=== PATIENT | male | born 1955 | race Caucasian/White ===

== ENCOUNTER 2022-03-01 12:58 | Outpatient (RCR) | payer MEDICARE, SELFPAY ==
--- NOTE | 2022-03-06 11:05 | HP.PTEVAL_ITS ---
Patient's Visit Information MARITZA RIVERA is a 66 year old M referred to Physical Therapy by Dr. Jesus Collins MD with a diagnosis of TMD. Date of Evaluation: 03/01/22 Physical Therapist: Victor Manuel Durbin DPT - Visit Plan Frequency: 2x /Week Duration: 4 Weeks Plan: Start with racobado exercises. Add in US to R side of TMJ. Add in TMJ mobility and massater/pterygoid massage. - Subjective Pt. is here today for his initial evaluation with diagnosis of R TMD. Pt. reports having increased pain with his R jaw since [place]. He reports increased pain with opening and with closing his mouth, as well as chewing. He has been having on and off pain since. Pt. does reports some mild relief over the past few days, but is still having trouble opening his mouth. He reports being tender to the touch, but has had some relief with icing this R mandible. Pt. has had a few episodes of TMD over the past few years. He is hopeful to get back to all eating and chewing without increase in symptoms. Pt. denies popping in his jaw, but does report some pain at radiates into maxillary region of R side. - Pain R TMJ Pain Intensity (Out of 10): 4 Pain Intensity Range: 2, 7 - Objective POSTURE: Pt. has fairly decent posture in stance. Slight FH posture. Pt. with mouth closed has normal jaw posture. Slight R deviation with opening. He is able to open ~23mm Mild cervical protrusion noted. PALPATION: Pt. has tenderness at R TMJ and slightly into maxillary region on the right side. No L sided pain. NEURO: normal cranial testing. Normal sensation throughout face. ROM: CERVICAL SPINE: flexion min loss NE, ext min loss NE, SB min loss NE bilat. rotation min loss bilat NE. jaw openin cm with opening. Pain and stiffness limiting. Pain at R TMJ. MMT: Pt. has normal jaw, cervical spine and B shoulder strength. - Goals Goal 1:: LTG: Pt. to be I with HEP. Goal Time Frame: 2-4 Weeks Goal 2:: STG: pt. to eat without increase in R side TMJ pain. Goal Time Frame: 2 Weeks Goal 3:: STG: Pt. to have increased ROM with jaw opening to at least 50mm. Goal Time Frame: 2-4 Weeks Goal 4:: LTG: Pt. to sleep without increase in symptoms. Goal Time Frame: 2-4 Weeks - Rehabilitation Potential Physical Therapy Diagnosis: Pt. has signs and symptoms consistent with TMD on the R side. Pt. has marked hypomobility with opening his jaw and marked pain with chewing. He has R lateral deviation with opening his mouth most likely due to disc derangement of R TMJ. Due to his pain he also has tightness in his R masseter as well. I would like to work in PT with him with focus on reducing muscle tension and and allowing for increased ability to eat and drink with less issues. Rehabilitation Potential: Excellent - Anticipated Interventions Patient/Client Instruction: Educate patient on: Condition, Plan of Care, Risk Factors, Benefits of Fitness Program For the Purpose of:: To foster healthy habits, To improve decision making, To facilitate caregiver knowledge, To improve self management, To prevent re- injury, To improve ability to perform tasks related to life management Therapeutic Exercise to Include: Strength training, Body mechanics, Postural training, Flexibilty training, Passive ROM, Active ROM, Debbie Exercises, Scapular Strength/Stabilization For the Purpose of:: To decrease pain, To increase ROM, To improve nutrient delivery to tissue, To increase oxygenation perfusion, To improve muscle performance and motor function Manual Therapy Techniques to Include: Mobilization, Functional dry needling, Soft tissue mobilization For the Purpose of:: To decrease pain, To decrease swelling/inflammation, To increase ROM, To improve nutrient delivery to tissue Ultrasound (thermal/non thermal): Yes For the Purpose of:: To decrease pain, To increase ROM, To improve nutrient delivery to tissue, To increase oxygenation perfusion Thank you for the opportunity to evaluate your patient. For Medicare and Medicare HMO plans, please review the plan of care and approve it. It will need to be FAXED BACK to us at [phone] for Medicare purposes. For Medicare only, by signing this I certify the plan of care. Please let me know if there are questions or concerns regarding this plan of care. Physician Signatu re: Date:
== END 2022-03-01 19:00 | disposition home or self-care (01) ==
LOC: PT 12:58
PROVIDERS: PCP Family Medicine; Referring Provider Family Medicine; Visit Provider Family Medicine
DX: M26.609 Unspecified temporomandibular joint disorder, unspecified side (principal)
CPT/HCPCS: 97035; 97110; 97161

== ENCOUNTER 2022-11-15 13:30 | Outpatient (RCR) | payer MEDICARE, SELFPAY ==
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
--- NOTE | 2022-11-15 14:25 | HP.PTDCSUM ---
Discharge Summary D/C summary: It has been my pleasure to treat MARITZA RIVERA referred by Dr. Jesus Collins MD, with the diagnosis of TMJ dysfunction for a total of 5 visit(s). Discharge Date: 11/15/22 Please see the following information for a summary of their discharge status. Subjective Subjective: Alot better than at first. I can smile and eat and talk. Fairly consistently , pain is up and down and mostly during the night waking up at 2 am with minor pain r cheek. Can manage with brushing technique. Wakes up OK. Eating is better, avoiding thicker foods. 90% better. To doctor in January. Doing HEP. Pain R TMJ: Pain Intensity (Out of 10): 0 Overall Improvement % Improvement: 90 Objective Objective/Function: L deviation 15 adn R 13 degrees.opening 40 mm today. good opening today and without popping. Pt happy and imporved, Feels like he can manage himself at this point. Goals Goal 1:: consistent jaw opening to 40 mm and deviation to 12 B without pain. Goal Progress: Goal Met Goal 2:: Patient feel eating and talking 100% back to normal for 2 weeks Goal Progress: Progressing Goal 3:: I approp HEP to minimize future problems. Goal Progress: Goal Met Plan Plan: d/c to HEP D/C Information Discharge Comments: Finished approved visits and we feel he can manage himself with HEp at this point, to contact doctor if situation worsens for next step or referral back to PT which has been helpful. d/c sentence: If there are questions or concerns regarding this patient's physical therapy, please feel free to call me at [phone]. Thank you for the referral of this patient. Sincerely, Rodrigo Us, DPT, OCS, CSCS Balance/Gait/Functional tests Improvement % Improvement: 90
== END 2022-11-15 15:26 | disposition home or self-care (01) ==
LOC: PT 13:30
PROVIDERS: PCP Family Medicine; Referring Provider Family Medicine; Visit Provider Family Medicine
DX: M26.609 Unspecified temporomandibular joint disorder, unspecified side (principal)
CPT/HCPCS: 97035; 97110; 97140; 97161; 97164